=== PATIENT | male | born 1960 | race Caucasian/White ===

== ENCOUNTER → 2020-11-05 | Outpatient (CLI) | payer OTHER | END | disposition home or self-care (01) | LOC: LAB SHORT 07:33 → PLD 07:33 | DX: L82.1 Other seborrheic keratosis (principal) | CPT/HCPCS: 88305 ==

== ENCOUNTER 2021-03-18 09:11 | Day surgery (SDC) | payer OTHER ==
[~2021-03-18] VITALS: Ht 188 cm; Wt 148.8 kg
--- NOTE | 2021-03-18 10:03 | NUR ---
03/18/21 1003 Kerry Salinas WHEN ASKED PT. IF HE HAD ANY PAIN, PT. DENIED BUT ALSO STATED "JUST DON'T FEEL RIGHT. FEEL DEHYDRATED & TIRED." PT. DENIES SOB TODAY WHILE LAYING IN BED. CALL LIGHT IS WITHIN REACH.
== END 2021-03-18 12:00 | disposition home or self-care (01) ==
LOC: ORSCSDS 09:11
PROVIDERS: Student in an Organized Health Care Education/Training Program
PROC: 0DBH8ZX Excision of Cecum, Via Natural or Artificial Opening Endoscopic, Diagnostic (ICD-10-PCS; principal; 2021-03-18 10:30)
PROC: 0DB68ZX Excision of Stomach, Via Natural or Artificial Opening Endoscopic, Diagnostic (ICD-10-PCS; principal; 2021-03-18 10:30)
PROC: 0DBL8ZX Excision of Transverse Colon, Via Natural or Artificial Opening Endoscopic, Diagnostic (ICD-10-PCS; principal; 2021-03-18 10:30)
PROC: 0DBN8ZX Excision of Sigmoid Colon, Via Natural or Artificial Opening Endoscopic, Diagnostic (ICD-10-PCS; principal; 2021-03-18 10:30)
PROC: 0DBK8ZX Excision of Ascending Colon, Via Natural or Artificial Opening Endoscopic, Diagnostic (ICD-10-PCS; principal; 2021-03-18 10:30)
DX: R63.4 Abnormal weight loss (principal); D12.0 Benign neoplasm of cecum; D12.2 Benign neoplasm of ascending colon; D12.3 Benign neoplasm of transverse colon; K57.30 Diverticulosis of large intestine without perforation or abscess without bleeding; K64.8 Other hemorrhoids; K29.70 Gastritis, unspecified, without bleeding; R11.0 Nausea; R53.83 Other fatigue
CPT/HCPCS: 88305; J2704; J7120